=== PATIENT | male | born 1985 | race Caucasian/White ===

== ENCOUNTER 2023-03-21 12:13 | Emergency (ER) | payer MEDICAID ==
[~2023-03-21] VITALS: Ht 165.1 cm; Wt 90.7 kg
[2023-03-21 12:18] VITALS: BP 143/96; PULSE 79; RESP 18; TEMP 97.9; O2SAT 97
[2023-03-21] MEDS ORDERED: LIDOCAINE MPF 1% 10 MG/ML VIAL INJ ONE (14:25)
[2023-03-21] MEDS ORDERED: BACI-418 TP (14:56)
[2023-03-21] MEDS ORDERED: IBUP-1842 PO (14:56)
[2023-03-21 16:25] VITALS: BP 121/67; PULSE 89; RESP 18; TEMP 98; O2SAT 98
== END 2023-03-21 16:26 | disposition home or self-care (01) ==
LOC: MED 12:13
DX: S61.210A Laceration without foreign body of right index finger without damage to nail, initial encounter (principal); Z79.1 Long term (current) use of non-steroidal anti-inflammatories (NSAID); Z79.2 Long term (current) use of antibiotics; W26.8XXA Contact with other sharp object(s), not elsewhere classified, initial encounter; Y93.89 Activity, other specified; Y92.009 Unspecified place in unspecified non-institutional (private) residence as the place of occurrence of the external cause; Y99.8 Other external cause status
CPT/HCPCS: 12002; 73130; 90471; 90715; 99283; J2001

== ENCOUNTER 2023-03-23 12:23 | Emergency (ER) | payer MEDICAID ==
[~2023-03-23] VITALS: Ht 167.6 cm; Wt 79.4 kg
[~2023-03-23 12:23] MED LIST: BACI-418 TP; IBUP-1842 PO
[2023-03-23 12:41] VITALS: BP 137/80; PULSE 74; RESP 17; TEMP 97.7; O2SAT 98
== END 2023-03-23 13:15 | disposition home or self-care (01) ==
LOC: MED 12:23
DX: S61.210A Laceration without foreign body of right index finger without damage to nail, initial encounter (principal); X58.XXXA Exposure to other specified factors, initial encounter; Y93.89 Activity, other specified; Y92.89 Other specified places as the place of occurrence of the external cause; Y99.8 Other external cause status
CPT/HCPCS: 99283

== ENCOUNTER 2023-03-30 12:19 | Emergency (ER) | payer MEDICAID ==
[~2023-03-30] VITALS: Ht 165.1 cm; Wt 94.4 kg
[2023-03-30 12:57] VITALS: BP 135/84; PULSE 91; RESP 20; TEMP 98.1; O2SAT 96
[2023-03-30 14:26] VITALS: BP 125/84; PULSE 88; RESP 20; TEMP 98.1; O2SAT 98
== END 2023-03-30 14:26 | disposition home or self-care (01) ==
LOC: MED 12:19
DX: S61.218D Laceration without foreign body of other finger without damage to nail, subsequent encounter (principal); Z48.02 Encounter for removal of sutures; Z79.1 Long term (current) use of non-steroidal anti-inflammatories (NSAID); Z79.2 Long term (current) use of antibiotics; X58.XXXD Exposure to other specified factors, subsequent encounter
CPT/HCPCS: 99281